=== PATIENT | female | born 1990 | race Caucasian/White ===

== ENCOUNTER → 2018-10-17 14:00 | Emergency (ER) | payer MEDICAID ==
[~2018-10-17] VITALS: Ht 172.7 cm; Wt 58.0 kg
[2018-10-17 14:04] VITALS: BP 123/79
== END | disposition home or self-care (01) ==
LOC: ER 14:00
DX: J02.9 Acute pharyngitis, unspecified (principal); H92.02 Otalgia, left ear
CPT/HCPCS: 87081; 87880; 99283

== ENCOUNTER 2019-06-26 02:22 | Emergency (ER) | payer BC, MEDICAID, OTHER ==
[~2019-06-26] VITALS: Ht 172.7 cm; Wt 68.2 kg
[2019-06-26 02:25] VITALS: BP 114/74
[2019-06-26] MEDS ORDERED: ketorolac trometh inj. 60 MG/2 ML VIAL IM ONE (02:40)
[2019-06-26] MEDS ORDERED: CYCL-1 PO (02:47)
== END 2019-06-26 02:52 | disposition home or self-care (01) ==
LOC: ER 02:23
DX: S16.1XXA Strain of muscle, fascia and tendon at neck level, initial encounter (principal); X50.1XXA Overexertion from prolonged static or awkward postures, initial encounter; Y93.89 Activity, other specified; Y92.89 Other specified places as the place of occurrence of the external cause; Y99.9 Unspecified external cause status
CPT/HCPCS: 96372; 99283; J1885

== ENCOUNTER 2019-09-06 13:03 | Emergency (ER) | payer OTHER ==
[~2019-09-06] VITALS: Ht 175.3 cm; Wt 65.0 kg
[~2019-09-06 13:03] MED LIST: CYCL-1 PO
[2019-09-06 13:12] VITALS: BP 113/74
--- NOTE | 2019-09-06 15:40 | NUR ---
Patient seen and assessed by provider.
== END 2019-09-06 15:42 | disposition home or self-care (01) ==
LOC: ER 13:04
DX: R05 Cough (principal); Z20.828 Contact with and (suspected) exposure to other viral communicable diseases; R51 Headache; J02.9 Acute pharyngitis, unspecified; Z79.899 Other long term (current) drug therapy
CPT/HCPCS: 99281

== ENCOUNTER 2019-09-13 11:51 | Emergency (ER) | payer OTHER ==
[~2019-09-13] VITALS: Ht 172.7 cm; Wt 65.9 kg
[2019-09-13 11:54] VITALS: BP 125/92
--- NOTE | 2019-09-13 12:10 | NUR ---
swab completed and sent to lab
== END 2019-09-13 12:12 | disposition home or self-care (01) ==
LOC: ER 11:51
DX: J06.9 Acute upper respiratory infection, unspecified (principal); Z20.828 Contact with and (suspected) exposure to other viral communicable diseases; J02.9 Acute pharyngitis, unspecified; R53.83 Other fatigue
CPT/HCPCS: 87502; 87503; 87635; 99283

== ENCOUNTER 2019-09-17 11:52 | Emergency (ER) | payer OTHER ==
[~2019-09-17] VITALS: Ht 172.7 cm; Wt 65.9 kg
[2019-09-17 11:53] VITALS: BP 128/82
[2019-09-17] MEDS ORDERED: AZIT-72 PO (12:02)
[2019-09-17] MEDS ORDERED: BENZ-16 PO (12:02)
[2019-09-17] MEDS ORDERED: ALBU8.5H8 IH (12:02)
== END 2019-09-17 12:15 | disposition home or self-care (01) ==
LOC: ER 11:52
DX: J20.9 Acute bronchitis, unspecified (principal); J02.9 Acute pharyngitis, unspecified
CPT/HCPCS: 99283

== ENCOUNTER 2019-12-06 21:52 | Emergency (ER) | payer OTHER ==
[~2019-12-06] VITALS: Ht 172.7 cm; Wt 63.6 kg
[~2019-12-06 21:52] MED LIST changes: +ALBU8.5H8 IH; +BENZ-16 PO
[2019-12-06 22:37] VITALS: BP 126/90
[2019-12-06 22:57] LABS: CLARITY,URINE CLEAR (Clear); COLOR,URINE YELLOW (Yellow); GLUCOSE, URINE NEGATIVE (Neg); KETONES,URINE NEGATIVE (Neg); LEUKOCYTE ESTERASE ,URINE NEGATIVE (Neg); NITRITES, URINE NEGATIVE (Neg); OCCULT BLOOD,URINE NEGATIVE (Neg); PH,URINE 6.5 (4.8-8.0); PROTEIN,URINE NEGATIVE (Neg); UROBILINOGEN,URINE 0.2 E.U/dL (0.2-1.0)
[2019-12-06 22:58] LABS: URINE HCG NEGATIVE (NEG)
[2019-12-06 22:59] LABS: UA COLLECTION TYPE CLN CATCH MIDSTREAM
[2019-12-06 23:00] LABS: TROPONIN I < 0.04 NG/ML (0.0-0.05)
[2019-12-06 23:12] LABS: D-DIMER < 0.19 MG/L FEU (0-0.50)
[2019-12-06] MEDS ORDERED: SERT50TA10 PO (23:16)
[2019-12-06 23:47] LABS: ALANINE AMINOTRANSFERASE 27 U/L (12-78); ALBUMIN 4.1 G/DL (3.4-5.0); ALBUMIN/GLOBULIN RATIO 1.2 (1.1-1.5); ALKALINE PHOSPHATASE 79 IU/L (46-116); ANION GAP 9 (8-16); ASPARTATE AMINO TRANSFERASE 21 U/L (10-37); BILIRUBIN,TOTAL 0.3 MG/DL (0.1-1.0); BLOOD UREA NITROGEN 17 MG/DL (7-18); BUN/CREATININE RATIO 19.3 (6.6-38.0); CALCIUM 8.7 MG/DL (8.5-10.1); CHLORIDE 104 MMOL/L (99-107); CREATININE 0.88 MG/DL (0.40-0.90); GLUCOSE 99 MG/DL (70-104); SODIUM 138 MMOL/L (135-145); TOTAL PROTEIN 7.6 G/DL (6.4-8.2); eGFR 75 ML/MIN
== END 2019-12-06 23:42 | disposition home or self-care (01) ==
LOC: ER 21:54
DX: F41.9 Anxiety disorder, unspecified (principal); R30.0 Dysuria; R51 Headache; R20.0 Anesthesia of skin; Z79.899 Other long term (current) drug therapy
CPT/HCPCS: 36415; 80053; 81003; 81025; 84443; 84484; 85379; 87491; 93005; 99284